=== PATIENT | female | born 1955 | race Caucasian/White ===

== ENCOUNTER 2021-09-12 13:00 | Emergency (ER) | payer OTHER ==
[~2021-09-12] VITALS: Ht 167.6 cm; Wt 128.4 kg
[~2021-09-12 13:00] MED LIST: NOREPINEPHRINE 4 MG in DEXTROSE 5% 250 ML IV ONE; PROPOFOL 1000 MG/100 ML PREMIX 100 ML IV ONE
--- NOTE | 2021-09-12 13:00 | NUR ---
ON TRANSITION TO ER [facility], PT BECAME PULSELESS, PEA ON MONITOR WITH AGONAL BREATHING. CPR STARTED. DR HERNANDEZ AND RT AT BEDSIDE FOR INTUBATION.
--- NOTE | 2021-09-12 13:00 | NUR ---
1259 BIBA ALS TO ER BED 10
[2021-09-12] MEDS ORDERED: DOPPLER MC ONE (13:05)
[2021-09-12] MEDS ORDERED: PROPOFOL 1000 MG/100 ML PREMIX 100 ML IV ONE (13:18)
[2021-09-12] MEDS ORDERED: CODE BLUE PARTICIPANT 1 EA MISC MC ONE ×2 (13:30)
[2021-09-12] MEDS ORDERED: PRIMARY CRASH CART TRAY MC ONE ×2 (13:34→14:50)
--- NOTE | 2021-09-12 13:45 | NUR ---
DR. MARTINEZ IS SPEAKING WITH THE FAMILY. DALIA.
[2021-09-12] MEDS ORDERED: PIPERACILLIN/TAZOBACTAM 3.375 GM VIAL IV ONE (14:00)
[2021-09-12] MEDS ORDERED: VANCOMYCIN 1,000 MG VIAL ONE (14:00)
[2021-09-12] MEDS ORDERED: VANCOMYCIN PER PHARMACY MC PRN (14:05)
[2021-09-12] MEDS ORDERED: PIPERACILLIN/TAZOBACTAM 3.375 GM in DEXTROSE 5% 50 ML IV ONE (14:05)
[2021-09-12] MEDS ORDERED: VANCOMYCIN 1GM/DEXT 5% PREMIX 200 ML IV ONE (14:05)
[2021-09-12 14:30] VITALS: BP 105/75
--- NOTE | 2021-09-12 14:45 | NUR ---
NO PALPABLE PULSE FELT. CPR/ACLS STARTED. SEE CODE SHEET FOR DETAILS OF RESUSCITATION.
--- NOTE | 2021-09-12 14:58 | NUR ---
NO PALPABLE PULSE FELT. CPR/ACLS STARTED. SEE CODE SHEET FOR DETAILS OF RESUSCITATION.
--- NOTE | 2021-09-12 15:02 | NUR ---
FAMILY AT BEDSIDE, REQUESTING TO STOP CPR. DR MARTINEZ AWARE. TIME OF CALLED.
--- NOTE | 2021-09-12 15:10 | NUR ---
[facility] SPOKE WITH NATALI. SALES MARKETING MANAGER TO CALL BACK.
--- NOTE | 2021-09-12 15:11 | NUR ---
CALL MADE TO [facility], SPOKE WITH NAE, REFERENCE NUMBER PROVIDED: [id number].
--- NOTE | 2021-09-12 15:31 | NUR ---
[facility] NOTIFIED OF FOR PCP DR. BRIGIDA PACHECO.
--- NOTE | 2021-09-12 16:33 | NUR ---
FOLLOW UP [facility] [place] [facility] TO RETURN CALL. NO ETA PROVIDED.
--- NOTE | 2021-09-12 16:35 | NUR ---
ALL CARE TRANSFERRED TO [facility]ER[facility] GRAY.
--- NOTE | 2021-09-12 16:50 | NUR ---
RECEIVED CALL BACK FROM AMMY VALENTIN FROM [facility]ICE. STATED THAT THEY ARE RUNNING BEHIND AND NO CONTACT LENS MOLDER IS AVAILABLE AT THIS TIME. PER AMMY VALENTIN, BODY IS RELEASED BY [facility]ICE AND CAN GO TO THE [place]. HOWEVER, NO CASE NUMBER OR EXECUTIVE CHAIRMAN NAME PROVIDED AT THIS TIME. HE STATED THAT ALL LINES AND BELONGINGS CAN BE REMOVED AND GIVEN TO THE PATIENTS FAMILY. HE STATED THAT SOMEONE WILL CALL BACK IN ABOUT 5 HOURS TO GO INTO FURTHER DETAIL AND WILL TALK TO CHARGE NURSE. Addendum: 09/12/21 at 1659 by [email or web address] OKAY TO MOVE BODY OUT OF ER PER AMMY VALENTIN.
--- NOTE | 2021-09-12 17:33 | NUR ---
SPOKE WITH JUDAH AT [facility]. MUD GRINDER WILL BE SENT OVER IN 2-3 HRS.
--- NOTE | 2021-09-12 18:00 | NUR ---
BODY MOVED TO ROOM 128 ON THE FLOOR. PRODUCE CLERK MADE AWARE
--- NOTE | 2021-09-12 18:40 | NUR ---
ALL CARE TRANSFERRED TO [facility] AT THIS TIME.
--- NOTE | 2021-09-12 18:56 | NUR ---
SPOKE WITH JUAN RAMON FROM [facility]. UPDATED THAT BODY WAS RELEASED TO THE MORTUARY FROM THE [facility] OFFICER BUT INFORMED THEM NO SYNTHETIC SOIL BLOCKS PULPER CASE NUMBER WAS GIVEN. INFORMED THEM THAT BODY WAS MOVED TO ANOTHER ROOM OFF THE UNIT
--- NOTE | 2021-09-12 20:52 | NUR ---
[place]OV[place] BLASTING CAP ASSEMBLER ON SITE
--- NOTE | 2021-09-12 23:32 | NUR ---
RETURN CALL FROM [employer]C PAD GRINDER WHO SPOKE WITH PHOTOVOLTAIC TESTING TECHNICIANBERTHA FELDMAN
--- NOTE | 2021-09-12 23:36 | NUR ---
SPOKEN TO DEPUTY OTERO,[facility] NAME, AND RELEASES THE BODY WITH [facility] .
== END 2021-09-12 15:02 ==
LOC: MED 13:00
DX: I46.9 Cardiac arrest, cause unspecified (principal); R41.82 Altered mental status, unspecified; E16.2 Hypoglycemia, unspecified
CPT/HCPCS: 31500; 92950; 96365; 99291; 99292; J2543; J2704; J3370; 99282